=== PATIENT | male | born 1980 | race American Indian/Alaskan Native ===

== ENCOUNTER 2016-07-08 12:31 | Emergency (ER) | payer OTHER ==
[2016-07-08 12:32] VITALS: BMI 59.0
[2016-07-08 12:38] VITALS: BP 150/89; PULSE 88; RESP 18; TEMP 98.5; O2SAT 100
--- NOTE | 2016-07-08 13:03 | ED PDOC ---
HPI: Headache Time Seen by Provider: 07/08/16 12:50 Chief Complaint (Nursing): Headache Chief Complaint (Provider): Headache History Per: Patient History/Exam Limitations: no limitations Onset/Duration Of Symptoms: Days (8) Current Symptoms Are (Timing): Still Present Severity: Moderate Quality: Pressure Preceeding Symptoms: None Associated Symptoms: denies: Photophobia, Nausea, Vomiting, Extremity Weakness Additional History Per: Patient Additional Complaint(s): The pt is a 35yo male with PMHx of DM, currently on Losartan and Glucoride, presents to the ED for evaluation of intermittent headaches for the past 8 days. pt reports the pain is localized in his frontal face with some associated nasal congestion. Pt states he has been using nasal saline rinse/ afrin and Tylenol for the pain, with some relief at the beginning but now states for the past 3 days he has had no relief with his symptoms. Of note, pt reports he visited his PMD with similar complaints in the past and was put on an Abx regimen. Pt denies any history of seasoal allergies as well as any hx of kidney problems, stroke or heart disease. Additionally denies any cough, fever, nausea or vomiting. Pt offers no additional medical complaints. PMD: Dr. Vargas Past Medical History Reviewed: Historical Data, Nursing Documentation, Vital Signs Vital Signs: Last Vital Signs Temp 98.5 F 07/08/16 12:36 Pulse 88 07/08/16 12:36 Resp 18 07/08/16 12:36 BP 150/89 07/08/16 12:36 Pulse Ox 100 07/08/16 12:36 - Medical History PMH: Diabetes, HTN Denies: Chronic Kidney Disease - Surgical History Surgical History: Appendectomy - Family History Family History: States: Unknown Family Hx - Home Medications Home Medications: Ambulatory Orders Medication Instructions Recorded Tramadol Hydrochloride [Tramadol] 50 mg PO TID #15 tab 09/20/14 Amoxicillin/Clavulanate [Augmentin 1 tab PO DAILY #20 tab 07/08/16 875 MG-125 MG] Cetirizine HCl [Zyrtec] 10 mg PO DAILY #15 capsule 07/08/16 Fluticasone Nasal [Flonase] 2 spr NS DAILY #1 bottle 07/08/16 Naproxen [Naprosyn Tab] 375 mg PO Q8 PRN #15 tab 07/08/16 - Allergies Allergies/Adverse Reactions: Allergies Allergy/AdvReac Type Severity Reaction Status Date / Time No Known Allergies Allergy Verified 07/08/16 12:35 Review of Systems ROS Statement: Except As Marked, All Systems Reviewed And Found Negative ENT: Positive for: Nose Congestion Neurological: Positive for: Headache (Frontal headache localised near sinuses) Physical Exam - Reviewed Nursing Documentation Reviewed: Yes Vital Signs Reviewed: Yes - Physical Exam Appears: Positive for: Well, Non-toxic, No Acute Distress Head Exam: Positive for: ATRAUMATIC, NORMAL INSPECTION, NORMOCEPHALIC Skin: Positive for: Normal Color Eye Exam: Positive for: EOMI, PERRL ENT: Positive for: Other (Facial tenderness in maxillary area, right greater than left) Neck: Positive for: Normal, Supple Cardiovascular/Chest: Positive for: Regular Rate, Rhythm Respiratory: Positive for: Normal Breath Sounds. Negative for: Respiratory Distress Neurologic/Psych: Positive for: Alert, Oriented - ECG O2 Sat by Pulse Oximetry: 100 (RA) Pulse Ox Interpretation: Normal Medical Decision Making Medical Decision Making: Time: 1308 Impression: Headache Plan: - based on clinincal presentation, pt stabel for d/c home with Rx antibiotics and antihistamines. Scribe Attestation: All records were documented by Narda López, acting as a Scribe for TORIBIO Sow. Provider Scribe Attestation: All medical record entries made by the Scribe were at my direction and personally dictated by me. I have reviewed the chart and agree that the record accurately reflects my personal performance of the history, physical exam, medical decision making, and the department course for this patient. I have also personally directed, reviewed, and agree with the discharge instructions and disposition. Disposition - Clinical Impression Clinical Impression: Sinusitis - Patient ED Disposition Is Patient to be Admitted: No - Disposition Referrals: Eduin Patel MD [Staff Provider] - Disposition: Routine/Home Disposition Time: 13:16 Condition: FAIR Prescriptions: Amoxicillin/Clavulanate [Augmentin 875 MG-125 MG] 1 tab PO DAILY #20 tab Cetirizine HCl [Zyrtec] 10 mg PO DAILY #15 capsule Fluticasone Nasal [Flonase] 2 spr NS DAILY #1 bottle Naproxen [Naprosyn Tab] 375 mg PO Q8 PRN #15 tab PRN Reason: Pain, Moderate (4-7) Instructions: Sinusitis (ED)
== END 2016-07-08 13:30 | disposition home or self-care (01) ==
LOC: H.ER 12:31
DX: J32.9 Chronic sinusitis, unspecified (principal); E11.9 Type 2 diabetes mellitus without complications; I10 Essential (primary) hypertension